=== PATIENT | female | born 1995 | race Caucasian/White ===

== ENCOUNTER 2018-08-10 23:50 | Emergency (ER) | payer BC, SELFPAY ==
[2018-08-10 23:51] VITALS: BP 120/89; PULSE 90; RESP 16; TEMP 37.1; O2SAT 99; BMI 19.3
[2018-08-11 00:55] LABS: Glucose, Dipstick Normal (Normal); Ketone-Dipstick Negative (Negative); Leukocyte Esterase-Dipstick 100 /ul (Negative); Nitrite-Dipstick Positive (Negative); Occult Blood-Urine 250 /ul (Negative); Protein-Dipstick 15 mg/dl (Negative); Specific Gravity, Urine 1.025 (1.002-1.030); Urine Clarity Sl. Cloudy (Clear); Urine Urobilinogen 8 mg/dl (Normal)
[2018-08-11 00:56] LABS: Color, Urine SEE COMMENT BELOW (Yellow); Internal QC Validated? YES +Cl - CLEAR BKGD; Pregnancy, Urine Negative Negative; Urine Bilirubin Dipstick 3 mg/dL (Negative)
[2018-08-11 01:00] LABS: Bacteria RARE /hpf (None Seen); Mucous, Urine 2+ /hpf (<or=2+); Red Blood Cells-Urine 0-5 SEEN /hpf (0-5); Squamous Epithelial Cells - UA 0-5 SEEN /hpf (5-10); White Blood Cells 10-25 SEEN /hpf (0-5)
--- NOTE | 2018-08-11 02:21 | ED.DCSUM_ITS ---
- ER Visit Summary Date of Service: 08/11/18 Chief Complaint: Dysuria History of Present Illness: The patient is a 22 F who presents with UTI symptoms. Since yesterday she has developed burning and pain with urination. She also complains of urinary frequency and urgency. She has some generalized malaise but denies fever chest pain shortness of breath nausea vomiting. No abdominal flank or back pain. She was taking Azo and cranberry pills which were helping with her symptoms until they were oftentimes take them again. Physical Examination: Afebrile vitals are normal Moist mucous membranes Heart regular rate No respiratory distress Alert Test Results: is negative. Urinalysis consistent with infection with 100 leukocyte esterase, positive nitrates, 250 blood, 10-25 WBCs. Emergency Department Course and Treatment: Patient was given first dose of Bactrim here and a prescription for the same. She was discharged. She understands to return for new or worsening symptoms. Treatment Plan: [] Disposition: Discharge Impression: UTI This note was generated with [employer] dictation software. It may contain incorrect words, spelling, and punctuation that were not noted in review of the chart prior to signing ED Disposition - Plan for ED Patient: Referrals: [facility] Doctor,Out of [Primary Care Provider] -
--- NOTE | 2018-08-11 02:21 | ED.DEP ---
ED Disposition - Plan for ED Patient: Instructions: ED UTI Cystitis Female Prescriptions: Smz/Tmp Ds [Bactrim Ds] 1 tab PO BID #5 tab Referrals: [facility] Doctor,Out of [Primary Care Provider] -
[2018-08-11] MEDS: Smz/Tmp Ds Tablet 1 TABLET PO (02:44)
[2018-08-11 02:45] VITALS: BP 117/76; PULSE 61; RESP 16; O2SAT 97
== END 2018-08-11 02:46 | disposition home or self-care (01) ==
PROVIDERS: Emergency Provider Emergency Medicine
DX: N39.0 Urinary tract infection, site not specified (principal)
CPT/HCPCS: 81001; 81025; 99283

== ENCOUNTER → 2019-05-05 | Outpatient (CLI) | payer BC, SELFPAY ==
[2019-05-05 10:08] LABS: Internal QC Validated? YES +Cl - CLEAR BKGD; Monotest POSITIVE (Negative)
== END | disposition home or self-care (01) ==
DX: R59.1 Generalized enlarged lymph nodes (principal); R53.83 Other fatigue
CPT/HCPCS: 86308

== ENCOUNTER 2020-05-24 02:22 | Emergency (ER) | payer BC, SELFPAY ==
[2020-05-24 02:23] VITALS: BP 134/93; PULSE 83; RESP 16; TEMP 36.2; O2SAT 98; BMI 20.1
--- NOTE | 2020-05-24 02:36 | ED.DCSUM_ITS ---
History of Present Illness Chief Complaint: Abd Pain Informant: Patient - Abdominal Pain/Flank Pain Onset: Today - 18-20 hrs or so Context: Gradual Onset Timing: Waxes and wanes Quality: Aching, Cramping Location: Epigastric, RUQ Current Severity: Severe Maximum Severity: Severe Worsened by: - - can't tell; ate hard-boiled eggs this AM, no major effect. significantly increased pain tonight about 2 hrs after eating pasta w/o cheese or meat Relieved by: Nothing - Nausea/Vomiting/Emesis GI Symptom: Nausea. Negative for: Vomiting - Diarrhea/Melena/Hematochezia GI Symptom: Negative for: Diarrhea, Melena, Hematochezia Associated Symptoms: Negative for: Dysuria, Frequency, Hematuria, Urgency Narrative: Worsening abdominal pain throughout this past day, with nausea. At one point radiated into her upper back but she does not remember exactly where. Colicky. Has history of lactose intolerance, pain started out feeling similar but now feels like this is different. Past Medical History - Allergies and Home Meds Allergies/Adverse Reactions: Allergies No Known Allergies Allergy (Verified 08/10/18 23:53) Primary Care Physician: Ariadna Irene MD [STAFF PHYSICIAN] - (call for appt to be seen anytime after your ultrasound) Past Medical History: None Surgical History: tonsillectomy, - - Bowel surgery related to Campylobacter infection; rhinoseptoplasty; pectus excavatum repair Smoking Status: Never smoker Alcohol: None Review of Systems General: Denies: Chills, Fever, Sweats Eyes: Denies: Visual changes - bilaterally, Diplopia ENT: Denies: Rhinorrhea, Sore throat Cardiovascular: Denies: Chest pain, Palpitations Respiratory: Denies: Dyspnea, Cough, Dyspnea on exertion Gastrointestinal: Reports: Abdominal pain, Nausea. Denies: Vomiting, Diarrhea, Melena, Hematochezia Genitourinary: Denies: Dysuria, Hematuria, Frequency Musculoskeletal: Denies: Neck pain, Back pain, Extremity Pain Skin: Denies: Rash, Wounds Neurological: Denies: Headache, Weakness, Numbness Physical Exam Vital Signs/Narrative: Vital Signs Temp Pulse Resp BP Pulse Ox 05/24/20 02:23 97.2 F L 83 16 134/93 H 98 Inital Vital Signs reviewed: Yes General: Well nourished, Well developed, No Acute Distress Head: Normocephalic, Atraumatic Eyes: Perrl, EOMI ENT: Moist mucous membranes, No rhinorrhea Neck: Supple, Nontender Cardiovascular: Regular rate, Regular rhythm, No murmurs Respiratory: No distress, CTA bilaterally, Chest nontender Abdomen: Soft, Nondistended, Normal bowel sounds, Tender - Right upper quadrant and epigastrium. Otherwise nontender., Villalobos's sign. Negative for: Rebound tenderness Back: Nontender, Normal Inspection. Negative for: CVA tenderness Extremities: Nontender, No edema Skin: Normal color, No rash Neurological: Alert, Oriented x3, Cranial nerves II-XII grossly intact, Normal Strength, Normal Sensation Psychological: Normal affect, Normal Mood Diagnostic/Tx/Re-eval Laboratory Tests 05/24/20 05/24/20 05/24/20 Range/Units 03:28 02:25 02:25 WBC (4.4-11.0) K/mm3 RBC (4.2-5.4) M/mm3 Hgb (12.0-15.0) g/dL Hct (37-47) % MCV (81-99) fL MCH (27.0-32.0) pg MCHC (32-36) g/dL RDW Std Deviation (35.1-43.9) fl RDW Coeff of Ren (11.6-14.6) % Plt Count (150-450) K/mm3 MPV (6.2-12.0) fl Immature Gran % (Auto) (0.0-0.9) % Neut % (Auto) (47-70) % Lymph % (Auto) (19-41) % [place] % (Auto) (0-10) % Eos % (Auto) (0-5) % Baso % (Auto) (0-1) % Absolute Neuts (auto) (2.0-7.7) X10^3/uL Absolute Lymphs (auto) (0.83-4.51) X10^3/uL Nucleated RBC % (0-5) % Sodium 140 (136-145) mmol/L Potassium 3.9 (3.5-5.1) mmol/L Chloride 106 (98-107) mmol/L Carbon Dioxide 29.0 (21.0-32.0) mmol/L Anion Gap 5 (5-15) BUN 7 (7-18) mg/dL Creatinine 0.72 (0.55-1.02) mg/dL Estim Creat Clear Calc 123.25 ml/min Est GFR (MDRD) Af Amer 129 (>60) mL/min Est GFR (MDRD) Non-Af 107 (>60) mL/min BUN/Creatinine Ratio 9.7 L (10-20) RATIO Glucose 89 (74-106) mg/dL Calcium 9.5 (8.5-10.1) mg/dL Total Bilirubin 0.40 (0.20-1.00) mg/dL AST 15 (15-37) U/L ALT 22 (13-56) U/L Alkaline Phosphatase 66 (45-117) U/L Total Protein 8.1 (6.4-8.2) g/dL Albumin 3.8 (3.2-5.0) g/dL Globulin 4.3 H (2.2-4.2) g/dL Albumin/Globulin Ratio 0.9 (0.9-2.4) RATIO Lipase 173 (73-393) U/L Serum , Qual NEGATIVE Negative Urine Color Yellow (Yellow) Urine Clarity Clear (Clear) Urine pH 7.0 (5.0 - 8.0) Ur Specific [place] 1.010 (1.002-1.030) Urine Protein Negative (Negative) mg/dl Urine Glucose (UA) Normal (Normal) mg/dl Urine Ketones 5 H (Negative) mg/dl Urine Occult Blood Negative (Negative) /ul Urine Nitrite Negative (Negative) Urine Bilirubin Negative (Negative) mg/dL Urine Urobilinogen Normal (Normal) mg/dl Ur Leukocyte Esterase 25 H (Negative) /ul 05/24/20 Range/Units 02:25 WBC 6.3 (4.4-11.0) K/mm3 RBC 4.79 (4.2-5.4) M/mm3 Hgb 13.5 (12.0-15.0) g/dL Hct 42.2 (37-47) % MCV 88.1 (81-99) fL MCH 28.2 (27.0-32.0) pg MCHC 32.0 (32-36) g/dL RDW Std Deviation 42.5 (35.1-43.9) fl RDW Coeff of Ren 13.1 (11.6-14.6) % Plt Count 330 (150-450) K/mm3 MPV 9.1 (6.2-12.0) fl Immature Gran % (Auto) 0.200 (0.0-0.9) % Neut % (Auto) 54.0 (47-70) % Lymph % (Auto) 35.6 (19-41) % [place] % (Auto) 9.1 (0-10) % Eos % (Auto) 0.6 (0-5) % Baso % (Auto) 0.5 (0-1) % Absolute Neuts (auto) 3.4 (2.0-7.7) X10^3/uL Absolute Lymphs (auto) 2.26 (0.83-4.51) X10^3/uL Nucleated RBC % 0 (0-5) % Sodium (136-145) mmol/L Potassium (3.5-5.1) mmol/L Chloride (98-107) mmol/L Carbon Dioxide (21.0-32.0) mmol/L Anion Gap (5-15) BUN (7-18) mg/dL Creatinine (0.55-1.02) mg/dL Estim Creat Clear Calc ml/min Est GFR (MDRD) Af Amer (>60) mL/min Est GFR (MDRD) Non-Af (>60) mL/min BUN/Creatinine Ratio (10-20) RATIO Glucose (74-106) mg/dL Calcium (8.5-10.1) mg/dL Total Bilirubin (0.20-1.00) mg/dL AST (15-37) U/L ALT (13-56) U/L Alkaline Phosphatase (45-117) U/L Total Protein (6.4-8.2) g/dL Albumin (3.2-5.0) g/dL Globulin (2.2-4.2) g/dL Albumin/Globulin Ratio (0.9-2.4) RATIO Lipase (73-393) U/L Serum , Qual Negative Urine Color (Yellow) Urine Clarity (Clear) Urine pH (5.0 - 8.0) Ur Specific [place] (1.002-1.030) Urine Protein (Negative) mg/dl Urine Glucose (UA) (Normal) mg/dl Urine Ketones (Negative) mg/dl Urine Occult Blood (Negative) /ul Urine Nitrite (Negative) Urine Bilirubin (Negative) mg/dL Urine Urobilinogen (Normal) mg/dl Ur Leukocyte Esterase (Negative) /ul - Medical Decision Making Differential diagnosis includes biliary colic, in addition to renal colic and intestinal causes of pain. I performed a bedside ultrasound, since the patient presents around 3 AM and ultrasound is not available in the hospital at this time. She appears to have 1 mobile small gallstone without signs of pericholecystic fluid or gallbladder wall thickening on my gross inspection. She does have a positive sonographic Villalobos. Her kidney appears normal does not appear to show any hydronephrosis. There is no fluid in Morison's pouch. She feels much better after IV Toradol and Zofran. Her labs are normal, there is no elevation of the liver enzymes, bilirubin, lipase, or white blood count. I feel she can follow-up with an outpatient ultrasound which I am setting up for her, and follow-up with surgery. She is comfortable with that plan. ED Disposition - Plan for ED Patient: Disposition: Home or Assisted Living Diagnosis: Biliary colic, Cholelithiasis Instructions: ED Gallstones with Biliary Colic Prescriptions: Hydrocodone Bitart/Apap 5-325 [[place] 5MG-325MG] 1 tab PO Q4H PRN PRN 2 Days #10 tab PRN Reason: Pain Prescription Printed Ondansetron [Zofran Odt] 8 mg PO Q8H PRN PRN #14 tab PRN Reason: Nausea Prescription Printed Referrals: Ariadna Irene MD [STAFF PHYSICIAN] - (call for appt to be seen anytime after your ultrasound)
[2020-05-24 02:38] LABS: Absolute Lymphocyte Count 2.26 X10^3/uL (0.83-4.51); Absolute Neutrophil Count 3.4 X10^3/uL (2.0-7.7); Basophil# 0.03 X10^3/uL; Basophil% 0.5 % (0-1); Eosinophil# 0.04 X10^3/uL; Eosinophils% 0.6 % (0-5); Hematocrit 42.2 % (37-47); Hemoglobin 13.5 g/dL (12.0-15.0); Lymphocyte # 2.26 X10^3/ul (4.0); Lymphocyte % 35.6 % (19-41); Mean Corpuscular Hgb 28.2 pg (27.0-32.0); Mean Corpuscular Volume 88.1 fL (81-99); Mean Platelet Vol. 9.1 fl (6.2-12.0); Monocyte# 0.58 X10^3/uL; Monocyte% 9.1 % (0-10); NRBC Flagged by Analyzer 0 % (0-5); Neutrophil # 3.42 X10^3/uL (2.7-7.7); Platelet Count 330 K/mm3 (150-450); RBC Distribution Width CV 13.1 % (11.6-14.6); RBC Distribution Width SD 42.5 fl (35.1-43.9); Red Blood Count 4.79 M/mm3 (4.2-5.4); White Blood Count 6.3 K/mm3 (4.4-11.0)
[2020-05-24 02:50] LABS: Internal QC Validated? YES +Cl - CLEAR BKGD; Pregnancy, Serum, hCG Quali. NEGATIVE Negative
[2020-05-24] MEDS: Ketorolac 30 MG/ML Syringe IV (02:55)
[2020-05-24] MEDS: Ondansetron 4 MG/2 ML Vial IV (02:55)
[2020-05-24 02:58] LABS: ALB/GLOB Ratio 0.9 RATIO (0.9-2.4); AST(SGOT) 15 U/L (15-37); Alanine Aminotransfer ALT/SGPT 22 U/L (13-56); Albumin, Serum 3.8 g/dL (3.2-5.0); Alkaline Phosphatase 66 U/L (45-117); Anion Gap 5 (5-15); BUN 7 mg/dL (7-18); BUN/Creat Ratio 9.7 RATIO (10-20); Calcium,Total 9.5 mg/dL (8.5-10.1); Chloride 106 mmol/L (98-107); Creatinine, Serum 0.72 mg/dL (0.55-1.02); EST Glomerular Filtration Rate 107 mL/min (>60); Est Glom Filt Rate - Afr Amer 129 mL/min (>60); Estimated Creatinine Clearance 123.25 ml/min; Globulin 4.3 g/dL (2.2-4.2); Glucose 89 mg/dL (74-106); Lipase 173 U/L (73-393); Potassium 3.9 mmol/L (3.5-5.1); Protein, Total 8.1 g/dL (6.4-8.2); Sodium Level 140 mmol/L (136-145)
[2020-05-24 03:34] LABS: Red Blood Cells-Urine 0 SEEN /hpf (0-5)
[2020-05-24 03:37] LABS: Color, Urine Yellow (Yellow); Glucose, Dipstick Normal (Normal); Ketone-Dipstick 5 mg/dl (Negative); Leukocyte Esterase-Dipstick 25 /ul (Negative); Nitrite-Dipstick Negative (Negative); Occult Blood-Urine Negative /ul (Negative); Protein-Dipstick Negative (Negative); Urine Bilirubin Dipstick Negative (Negative); Urine Clarity Clear (Clear); Urine Urobilinogen Normal (Normal)
[2020-05-24 03:44] LABS: Bacteria RARE /hpf (None Seen); White Blood Cells 0-5 SEEN /hpf (0-5)
[2020-05-24 03:45] LABS: Mucous, Urine RARE /hpf (<or=2+); Squamous Epithelial Cells - UA 0-5 SEEN /hpf (5-10)
[2020-05-24 03:59] VITALS: BP 128/78; PULSE 72; RESP 16; O2SAT 100
== END 2020-05-24 04:00 | disposition home or self-care (01) ==
PROVIDERS: Emergency Provider Emergency Medicine
DX: K80.50 Calculus of bile duct without cholangitis or cholecystitis without obstruction (principal); K80.20 Calculus of gallbladder without cholecystitis without obstruction
CPT/HCPCS: 80053; 81001; 83690; 84703; 85025; 96374; 96375; 99283; A4216; J2405

== ENCOUNTER → 2020-05-24 14:58 | Outpatient (CLI) | payer BC, SELFPAY ==
[2020-05-24 02:23] VITALS: BMI 20.1
--- NOTE | 2020-05-24 15:01 | US_ITS ---
STUDY: ABDOMINAL ULTRASOUND - RIGHT UPPER QUADRANT REASON FOR VISIT: Female, 24 years old RUQ PAIN, NAUSEA SINCE LAST NIGHT TECHNIQUE: Ultrasound evaluation of the right upper quadrant was performed with real-time and static figueroa-scale imaging. TECHNICAL QUALITY: Adequate. COMPARISON: None. FINDINGS: Liver: The liver measures 19.1 cm. There is normal echogenicity of the liver. The bile ducts are within normal limits. There is hepatic color flow. The direction of portal flow is hepatopetal. 1 cm round hyperechoic mass within the right lobe of liver likely consistent with a hemangioma. Gallbladder: Normal distended gallbladder. The gallbladder wall measures 2 mm. There is a negative sonographic Villalobos''s sign. There is no pericholecystic fluid. There is a solitary echogenic gallstone within the gallbladder. Common Bile Duct (C.B.D.): The common bile duct measures 4 mm. Pancreas: Normal size of the head, body and tail of the pancreas. There is normal echogenicity of the pancreas. There is no demonstrated pancreatic mass or cyst. Right Kidney: Normal size of the right kidney. The right kidney measures 11.4 cm. Normal renal cortex. The right cortex measures 0.9 cm. There is no demonstrated renal mass or cyst. There is no right hydronephrosis. US/Gallbladder IMPRESSION: 1. Cholelithiasis. 2. Suspect 1 cm hemangioma within the right lobe of the liver. Correlation with liver mass protocol CT or MRI may be useful. Electronically Signed: Camilo Singh MD at 16:21 EST Tel , Service support ,
== END ==
PROVIDERS: Referring Provider Emergency Medicine; Visit Provider Emergency Medicine
DX: K80.50 Calculus of bile duct without cholangitis or cholecystitis without obstruction (principal)
CPT/HCPCS: 76705